=== PATIENT | female | born 2000 | race Two or more races ===

== ENCOUNTER 2018-08-10 16:37 | Emergency (ER) | payer OTHER ==
[2018-08-10] MEDS ORDERED: PHENAZOPYRIDINE HCL 200 MG TABLET PO ONE (18:09)
--- NOTE | 2018-08-10 18:12 | ER Document Report ---
ED Medical Screen (RME) - General Chief Complaint: Abdominal Pain Stated Complaint: ABDOMINAL/VAGINAL PAIN, LOWER BODY NUMBNESS Time Seen by Provider: 08/10/18 18:05 Mode of Arrival: Ambulatory Information source: Patient Notes: Patient presents emergency department with complaints of vaginal pain abdominal pain hesitancy. Denies vaginal discharge. she reports when she tries to void she only voids 2 or 3 drops. Reports all symptoms started this morning. Reports right flank pain that radiates down her right leg makes her right leg feel numb. Denies history of kidney stones denies history of UTI. Reports last menstrual period was 3 months ago. Unsure of . She reports this happened to her once before when she was under a lot of stress. I have greeted and performed a rapid initial assessment of this patient. A comprehensive ED assessment and evaluation of the patient, analysis of test results and completion of the medical decision making process will be conducted by additional ED providers. TRAVEL OUTSIDE OF THE [place] IN LAST 30 DAYS: No - Related Data Allergies/Adverse Reactions: No Known Allergies Allergy (Unverified 08/10/18 16:45) Physical Exam - Vital signs Vitals: Temp Pulse Resp BP Pulse Ox 97.5 F 92 18 119/50 L 100 08/10/18 17:16 08/10/18 17:16 08/10/18 17:16 08/10/18 17:16 08/10/18 17:16 Course - Vital Signs Vital signs: Temp Pulse Resp BP Pulse Ox 97.5 F 92 18 119/50 L 100 08/10/18 17:16 08/10/18 17:16 08/10/18 17:16 08/10/18 17:16 08/10/18 17:16
[2018-08-10 18:59] LABS: ABSOLUTE BASOPHILS # (AUTO) 0.1 10^3/uL (0.0-0.2); ABSOLUTE LYMPHOCYTES (AUTO) 0.8 10^3/uL (0.5-4.7); ABSOLUTE MONOCYTES (AUTO) 0.4 10^3/uL (0.1-1.4); ABSOLUTE NEUT (AUTO) 10.5 10^3/uL (1.7-8.2); BASOPHILS % (AUTO) 0.6 % (0-2); HEMATOCRIT 36.8 % (36.0-47.0); HEMOGLOBIN 12.8 g/dL (12.0-15.5); LYMPHOCYTES % (AUTO) 7.2 % (13-45); MEAN CORPUSCULAR HEMOGLOBIN 30.7 pg (27.0-33.4); MEAN CORPUSCULAR HGB CONC 34.7 g/dL (32.0-36.0); MEAN CORPUSCULAR VOLUME 88 fl (80-97); MONOCYTES % (AUTO) 3.1 % (3-13); PLATELET COUNT 254 10^3/uL (150-450); RED BLOOD COUNT 4.17 10^6/uL (3.72-5.28); RED CELL DISTRIBUTION WIDTH 15.3 % (11.5-14.0); SEGMENTED NEUTROPHILS % (AUTO) 89.1 % (42-78); TOTAL CELLS COUNTED % (AUTO) 100 %; WHITE BLOOD COUNT 11.8 10^3/uL (4.0-10.5)
[2018-08-10 19:13] LABS: APPEARANCE,URINE SLIGHTLY-CLOUDY; BILIRUBIN,URINE NEGATIVE (NEGATIVE); COLOR,URINE YELLOW; GLUCOSE, URINE NEGATIVE (NEGATIVE); KETONES,URINE 80 mg/dL (NEGATIVE); LEUKOCYTE ESTERASE,URINE NEGATIVE (NEGATIVE); NITRITE,URINE NEGATIVE (NEGATIVE); PROTEIN,URINE 100 mg/dL (NEGATIVE); URINE SPECIFIC GRAVITY 1.032; UROBILINOGEN,URINE NEGATIVE mg/dL (<2.0)
[2018-08-10 19:32] LABS: ALANINE AMINOTRANSFERASE 32 U/L (9-52); ALBUMIN 4.4 g/dL (3.5-5.0); ALKALINE PHOSPHATASE 80 U/L (38-126); ANION GAP 13 (5-19); ASPARTATE AMINO TRANSFERASE 30 U/L (14-36); BILIRUBIN,DIRECT 0.1 mg/dL (0.0-0.4); BILIRUBIN,TOTAL 0.5 mg/dL (0.2-1.3); BLOOD UREA NITROGEN 10 mg/dL (7-20); CALCIUM 10.2 mg/dL (8.4-10.2); CARBON DIOXIDE 22 mmol/L (22-30); CHLORIDE 101 mmol/L (98-107); GLUCOSE 87 mg/dL (75-110); POTASSIUM 4.4 mmol/L (3.6-5.0); SODIUM 135.9 mmol/L (137-145); TOTAL PROTEIN 7.9 g/dL (6.3-8.2)
--- NOTE | 2018-08-11 00:22 | ER Document Report ---
ED GI/ - General Chief Complaint: Abdominal Pain Stated Complaint: ABDOMINAL/VAGINAL PAIN, LOWER BODY NUMBNESS Time Seen by Provider: 08/10/18 18:05 Mode of Arrival: Ambulatory Notes: Patient is an otherwise healthy 18-year-old female who presents to the emergency department with nausea, vomiting, dizziness, low abdominal cramping that is been going on for the last several weeks. She reports her last period was at least 3 months ago. She states she has been under a lot of stress. She has not taken a test at home. TRAVEL OUTSIDE OF THE [place] IN LAST 30 DAYS: No - Related Data Allergies/Adverse Reactions: No Known Allergies Allergy (Unverified 08/10/18 16:45) Past Medical History - General Information source: Patient - Social History Smoking Status: Never Smoker Frequency of alcohol use: None Drug Abuse: None Family History: Reviewed & Not Pertinent Patient has suicidal ideation: No Patient has homicidal ideation: No - Medical History Medical History: Negative Renal/ Medical History: Denies: Hx Peritoneal Dialysis Surgical Hx: Negative - Immunizations Immunizations up to date: Yes Review of Systems - Review of Systems Constitutional: No symptoms reported EENT: No symptoms reported Cardiovascular: No symptoms reported Respiratory: No symptoms reported Gastrointestinal: Nausea, Vomiting Genitourinary: Frequency Female Genitourinary: Last menstrual period - 3 months ago. denies: Vaginal discharge, Vaginal bleeding Musculoskeletal: No symptoms reported Skin: No symptoms reported Hematologic/Lymphatic: No symptoms reported Neurological/Psychological: No symptoms reported Physical Exam - Vital signs Vitals: Temp Pulse Resp BP Pulse Ox 97.5 F 92 18 119/50 L 100 08/10/18 17:16 08/10/18 17:16 08/10/18 17:16 08/10/18 17:16 08/10/18 17:16 - Notes Notes: PHYSICAL EXAMINATION: GENERAL: Well-appearing, well-nourished and in no acute distress. HEAD: Atraumatic, normocephalic. EYES: Pupils equal round and reactive to light, extraocular movements intact, conjunctiva are normal. ENT: Nares patent, oropharynx clear without exudates. Moist mucous membranes. NECK: Normal range of motion, supple without lymphadenopathy LUNGS: Breath sounds clear to auscultation bilaterally and equal. No wheezes rales or rhonchi. HEART: Regular rate and rhythm without murmurs ABDOMEN: Soft, nontender, nondistended abdomen. No guarding, no rebound. No masses appreciated. Female : No CVA tenderness. Musculoskeletal: Normal range of motion, no pitting or edema. No cyanosis. NEUROLOGICAL: Cranial nerves grossly intact. Normal speech, normal gait. Normal sensory, motor exams PSYCH: Normal mood, normal affect. SKIN: Warm, Dry, normal turgor, no rashes or lesions noted. Course - Re-evaluation Re-evalutation: Patient's hCG is positive, quantitative hCG is 156,000. Transvaginal ultrasound shows an intrauterine of 12 weeks 5 days. This was discussed with the patient who was surprised to find out she was . Likely all of her symptoms are not due to the . Patient at time of discharge reporting that after the transvaginal ultrasound she is now having some vaginal spotting. Considering we do not have patient's blood type on record we will hold patient here and add on a, RhoGam workup. This was explained to the patient and patient verbalizes understanding and agreement with plan. RhoGam workup is negative. Patient's blood type O+, RhoGam not indicated. Patient encouraged to follow-up with her primary care provider so that she can get established with an [employer] to begin care. Patient verbalizes understanding and agreement with this plan. I did give her a prescription for Phenergan for her ongoing nausea and vomiting. - Vital Signs Vital signs: Temp Pulse Resp BP Pulse Ox 97.8 F 100 18 116/74 98 08/11/18 01:35 08/11/18 01:35 08/11/18 01:35 08/11/18 01:35 08/11/18 01:35 - Laboratory Result Diagrams: 08/10/18 18:42 08/10/18 18:42 Laboratory results interpreted by me: 08/10/18 08/10/18 08/10/18 18:42 18:42 18:42 WBC 11.8 H RDW 15.3 H Seg Neutrophils % 89.1 H Lymphocytes % 7.2 L Absolute Neutrophils 10.5 H Sodium 135.9 L Beta HCG, Quant 097094.00 H Urine Protein 100 H Urine Ketones 80 H Urine Ascorbic Acid 40 H Discharge - Discharge Clinical Impression: Normal in first trimester Nausea and vomiting Qualifiers: Vomiting type: unspecified Vomiting Intractability: unspecified Qualified Code(s): R11.2 - Nausea with vomiting, unspecified Condition: Stable Disposition: HOME, SELF-CARE Additional Instructions: You are . care is best started as early in as possible. If you're unsure about continuing this , you should discuss this with your physician or with ultrasonic welding machine operator at [facility]. You should take only medications approved by your physician. Acetaminophen can safely be taken for minor pains. As a rule, medication for chronic conditions such as asthma or seizures can safely be continued. You should discuss with the physician every medicine you take. Any regular exercise program can be continued. Talk to your physician, however, before engaging in competitive or demanding sports. Alcohol, smoking, and "street drugs" are dangerous to your baby. Cocaine is especially dangerous. Don't use any illicit drugs! The ultrasound shows that you are 12 weeks 5 days . Please call your primary care provider or insurance company to get a preauthorization to follow-up with an [employer] provider. In the meanwhile you may take the Phenergan if needed for nausea or vomiting. Drink plenty of fluids. Return to the [facility] if you develop any worsening symptoms such as vaginal bleeding, you pass out or you have persistent vomiting. Prescriptions: Promethazine HCl [Phenergan 25 mg Tablet] 1 tab PO Q6H PRN #15 tablet PRN Reason:
[2018-08-11] MEDS ORDERED: HYDROCODONE/ACETAMINOPHEN 5-325 MG TABLET PO ONE (00:32)
--- NOTE | 2018-08-11 01:29 | RADIOLOGY REPORT (SQ) ---
EXAM DESCRIPTION: US LESS THAN 14 WEEKS COMPLETED DATE/TME: 08/10/2018 21:05 CLINICAL HISTORY: 18 years, Female, R flank pain, eval size/date/location, r/o ectopic COMPARISON: None. TECHNIQUE: Transverse and longitudinal transabdominal sonographic images in a first trimester patient LIMITATIONS: None. FINDINGS: The maternal uterus measures 8.8 x 10.6 x 8.2 cm. There is a single, live intrauterine gestation. Current ultrasound age is 12 weeks 5 days based on a mean crown-rump length of 6.33 cm. Heart tones were obtained at 153 bpm. Cervical length is 2.7 cm. Assessment of the placenta and amniotic fluid volume was not performed due to early gestational age. The maternal right ovary measures 3 x 1 x 1 cm, the left 3 x 1 x 1 cm. No adnexal cyst or mass. No free fluid. IMPRESSION: Single, live intrauterine gestation with current ultrasound age 12 weeks 5 days. Continued nonemergent follow-up recommended copyright 2010 [employer]- All Rights Reserved
[2018-08-11 01:52] VITALS: BP 116/74
== END 2018-08-11 01:35 | disposition home or self-care (01) ==
LOC: ER 16:37
DX: O21.9 Vomiting of pregnancy, unspecified (principal); O26.891 Other specified pregnancy related conditions, first trimester; R10.9 Unspecified abdominal pain; R10.2 Pelvic and perineal pain; R20.0 Anesthesia of skin; R42 Dizziness and giddiness; R10.30 Lower abdominal pain, unspecified; Z3A.12 12 weeks gestation of pregnancy
CPT/HCPCS: 99284; 86900; 86901; 36415; 84702; 85025; 80053; 81001; 76801; J3490